=== PATIENT | female | born 1980 | race Caucasian/White ===

== ENCOUNTER 2022-06-09 06:55 | Day surgery (SDC) | payer OTHER, SELFPAY ==
[2022-06-09] VITALS (7 sets, daily range): BP systolic 107–127; BP diastolic 71–84; PULSE 81–110; RESP 16; TEMP 36.1–36.8; O2SAT 97–100; BMI 28.3
--- NOTE | 2022-06-09 | COLBX_PTH ---
PATIENT: YANN KANG LOC: EN U#:[id number] AGE/SX: 42/F ROOM: RE06/09/[address]: Dr. Raegan Silva MD : 1980 BED: DIS: 06/09/2022 SPEC #: [id number] RECD: 06/09/22 14:38 STATUS: NIKOLAY RETameka #: [id number] DEMETRIO: 06/09/22 00:[address]: Raegan Silva DEPT: SURGICAL PATHOLOGY RECD BY: Crescencio Rubio ENTERED: 06/10/22 09:08 SP TYPE: COLON BX OTHR DR: Dr. Maikol Bear, DO Tissues: A - Sigmoid colon biopsy B - Rectum, NOS C - Rectum, NOS D - Rectum, NOS Procedures: Surgery Specimen Level IV HEADER OPERATION: Colonoscopy (MAC) PRE-OP DIAGNOSIS: Rectal/anal verge mass 2-3 o?clock TISSUE SUBMITTED: A ? Sigmoid polyp biopsy, B ? Rectal polyp base #1, C - Rectal polyp base #2, D - Rectal polyp top MICROSCOPIC DIAGNOSIS A. Sigmoid polyp, biopsy: Fragments of hyperplastic polyp. B. 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 See cancer summary in the comment section. C. Rectal polyp base #2, biopsy: Fragments of colonic mucosa with focal hyperplastic changes. Negative for adenomatous changes. D. 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 See comment. SJ:aleksey 06/11/2022 COMMENT COLON CANCER SUMMARY, POLYPECTOMY, EXCISIONAL BIOPSY (including specimens B-D): Specimen integrity ? fragmented Tumor site ? 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 grade 1, well differentiated Size of invasive carcinoma ? 0.2 cm Tumor extent ? tumor invades muscularis mucosa. Lymphvascular invasion ? not identified Tumor deposits ? not applicable Type of polyp in which intramucosal carcinoma arose ? tubulovillous adenoma Polyp size ? fragmented, greatest polyp fragment size - 2 cm. Margins ? margins are free of adenomatous changes (specimen C - rectal polyp base, the largest piece measures 0.5 cm in thickness). Additional findings ? none The above summary is in compliance with [employer] [place] [employer] (CAP) Cancer Protocols Checklist and [place] [employer] Committee on Cancer (AJCC), Staging Manual, 8th Ed. Correlation with clinical, endoscopic findings and appropriate follow up are necessary. This case was reviewed and diagnosis discussed with Dr. Silva on 06/13/2022. Case has been reviewed in consultation with Dr. Jarvis who concurs with the above diagnosis. IDC:AM MICROSCOPIC DESCRIPTION Slides are reviewed. GROSS DESCRIPTION A - Received in fixative is one container labeled with the patient's name and designated sigmoid polyp biopsy. The specimen consists of multiple irregular fragments of light sky soft tissue that in aggregate measure 1 x 1 x 0.1 cm. The specimen is totally submitted in one cassette. B - Received in fixative is one container labeled with the patient's name and designated rectal polyp base #1. The specimen consists of a pink-red polyp measuring 2.5 x 2 x 1.2 cm. The presumed base is inked. The polyp is serially sectioned and submitted entirely in two cassettes. C - Received in fixative is one container labeled with the patient's name and designated rectal polyp base #2. The specimen consists of multiple irregular fragments of sky-pink polypoid tissue that in aggregate measure 2 x 2 x 0.7 cm. The largest two pieces measure 0.8 and 1.5 cm in greatest dimension. The largest piece is serially sectioned. The second largest piece is bisected. The entire specimen is submitted in two cassettes. D - Received in fixative is one container labeled with the patient's name and designated rectal polyp top. The specimen consists of multiple irregular fragments of sky-pink polypoid tissue that in aggregate measure 1.5 x 1.5 x 0.4 cm. The entire specimen is submitted in one cassette. / SJ:rg 06/10/2022 TC:0 [facility]: [id number] x4
--- NOTE | 2022-06-09 07:16 | HP.PCM_ITS ---
History and Physical Date of Admission: 06/09/22 Date of Service:? 06/02/22 MR#: [id number] Acct: [id number] Name:YANN PEREZ Rep #: [id number] : 1980 ? ? Provider: Dr. Raegan Silva MD Age/Sex:? 42/F ? ? Location: [facility] Status: Signed Intake Vital Signs ? 06/02/2308:01 Height 5 ft 6 in Weight: 176 lb BMI 28.4 BP 117/75 Blood Pressure Location Rt brachial Position Sitting Respiration 16 Intake Visit Reasons:?HEMORRHAGE OF ANUS AND RECTUM Chief Complaint: est care Allergies No Known Allergies Allergy (Unverified 05/29/22 14:54) PFSH Medical History History of fracture History of IBS Kidney stones Non-smoker Surgical History? History of Family History? Grandfather Parkinsons disease Social History? Smoking Status:? Never smoker alcohol intake:? never substance use type:? does not use what type of physical activity do you participate in:? walking and weight training frequency:? 3-4 times per week HPI HPI HPI: 2-year-old female presents due to bright red blood per rectum.? Patient states for about the last 6 months she is noted some bright red blood in the stool and also dripping in the toilet usually smaller amount overall.? Patient states that happens with every bowel movement.? Patient does have 1-2 bowel movements daily.? Patient states she occasionally gets abdominal pain/cramping with this/bowel movements.? Patient states prior to about 6 months ago she may have had this bright red blood per rectum maybe once a week.? Patient denies any straining does states she does may spend prolonged times on the toilet she thinks she needs to go but is not going.? Patient is unsure amount of fiber she gets daily likely on the low side.? Patient is not sure she also drinks enough water daily.? Patient's never had previous colonoscopy.? Patient states that her maternal grandmother did have colitis but inflammatory bowel disease/Crohn's or ulcerative colitis does not sound familiar. ROS General General: No weight change, appetite, fatigue, colon cancer, breast cancer or weakness HEENT HEENT: No difficulty swallowing, eye injury, eye surgery, swollen glands or ho arseness Endo Endocrine: No thyroid disease, diabetes mellitus, thyroid cancer, Hair loss, heat intolerance or cold intolerance Skin Skin: No rash or changing moles Breast Breast: No left breast lump, right breast lump, nipple discharge, breast pain, abnormal mammogram, abnormal US or breast enlargement Musc Musculoskeletal: No back problems, arthritis, rheumatoid arthritis, gout or joint pain Cardio Cardiovascular: No murmur, pacemaker, heart disease, atrial fibrillation, high blood pressure, heart attack, heart stent, palpitations, shortness of breat with exertion or chest pain Psych Psychiatric: No depression, anxiety or hearing voices Resp Respiratory: No shortness of breath, No sleep apnea, No cough, No COPD, No asthma, No emphysema and No wheezing Gastro Gastrointestinal: Yes abdominal pain, Yes nausea or vomiting, No diarrhea, No constipation, Yes blood in stool, No acid reflux, No hemorrhoids, No ulcers, No gallbladder problem and No black,tarry stools Ernesto Hematologic: No blood thinners, No blood disorders, No bleeding, No anemia and No blood clots Neuro Neurologic: No system reviewed and no additional complaints, except as documented, No as per HPI, No abnormal gait, No abnormal hearing, No abnormal movements, No abnormal speech, No behavioral changes, No burning sensations, No confusion, No convulsions, No disequilibrium, No dizziness, No localized weakness, No frequent falls, No headache(s), No lack of coordination, No loss of vision, No memory loss, No numbness, No other visual disturbances, No radicular pain, No restless legs, No sensory deficit, No syncope, No tingling, No tremor(s), No weakness and No other Exam Const General: cooperative, healthy appearing and no acute distress [facility] Head: normal to inspection Resp Effort & Inspection: normal respiratory effort Cardio Rate: regular rate GI Inspection: non-distended Palpation: soft, no guarding, no hernias and nontender Other: NICOLA: No external residual tissue or hemorrhoids, internal hemorrhoid at about 4:00 small in size, no other masses or gross blood on exam. Skin General: no rashes or lesions noted Neuro General: patient oriented x3 Extrem General: no clubbing, cyanosis or edema Psych Affect: normal affect Assessment and Plan Assessment and Plan (1) Rectal bleeding: ?Status:?Acute Plan I have discussed the above with the patient. I have offered the patient colonoscopy for evaluation. I have explained the risks/benefits of the procedure and described the procedure.? I have discussed the risks with the patient, including but not limited to:? infection, bleeding, perforation of the GI tract requiring karmen rgency surgery, inability to complete the procedure, injury to any internal organs, complications of anesthesia, etc. - the patient understands and agrees to proceed. I have answered all the patient's questions to the patient's satisfaction and the patient has no further questions. The patient has been given instructions for the colon cleansing preparation. one day of clears- miralax/dulcolax. Raegan Silva M.D. Pager: [phone] [facility] [address] [place] [address], [address] [place] [address] Office: [phone] Coding Level of Care Code Off vis,new,level 3 Diagnoses Rectal bleeding? K62.5 06/06/22 1248 <Electronically signed by Raegan Silva MD> Date Raegan Silva MD
[2022-06-09] MEDS: Lactated Ringers 1,000 ML 15 ML IV (07:28)
[2022-06-09 07:41] LABS: Internal QC Validated? YES +Cl - CLEAR BKGD; Pregnancy, Serum, hCG Quali. NEGATIVE Negative
[2022-06-09] MEDS: Dibucaine 30 GM Tube 1 APPLIC (09:52)
--- NOTE | 2022-06-09 10:08 | OP.COLON_ITS ---
Patient Name: Rochelle Shaffer Procedure Date: 06/09/2022 8:13 AM Date of : 1980 Age: 42 Procedure: Colonoscopy Indications: Rectal bleeding Providers: Raegan Silva MD Referring MD: Raegan Silva MD Medicines: Monitored Anesthesia Care Patient Profile: This is a 42 year old female. Last Colonoscopy: none. The patient's first colonoscopy is today. Complications: No immediate complications. Procedure: Pre-Anesthesia Assessment: - Prior to the procedure, a History and Physical was performed, and patient medications and allergies were reviewed. The patient's tolerance of previous anesthesia was also reviewed. The risks and benefits of the procedure and the sedation options and risks were discussed with the patient. All questions were answered, and informed consent was obtained. Prior Anticoagulants: The patient has taken no previous anticoagulant or antiplatelet agents. ASA Grade Assessment: Per anesthesia. After reviewing the risks and benefits, the patient was deemed in satisfactory condition to undergo the procedure. After I obtained informed consent, the scope was passed under direct vision. Throughout the procedure, the patient's blood pressure, pulse, and oxygen saturations were monitored continuously. The adult colonoscope was introduced through the anus and advanced to the terminal ileum. The colonoscopy was technically difficult and complex due to large broadbased polyp at distal rectum/anal verge. [Solution]. The quality of the bowel preparation was good. Scope In: 8:26:21 AM Scope Withdrawal Time 0 hours 59 minutes 9 seconds Scope Out: 9:52:43 AM Total Procedure Duration Time 1 hour 26 minutes 22 seconds Findings: The perianal examination was normal. Two sessile polyps were found in the sigmoid colon. The polyps were 2 to 4 mm in size. These polyps were removed with a cold biopsy forceps. Resection and retrieval were complete. A 35 mm polyp was found in the rectum. The polyp was carpet-like and semi-pedunculated. The polyp was removed with a piecemeal technique using a hot snare. Resection and retrieval were complete. Due to bleeding 2-0 vicryl figure of 8 suture was placed-bleeding controlled and gelform also placed in rectum at the end of the case. The terminal ileum appeared normal. The exam was otherwise without abnormality. Impression: - Two 2 to 4 mm polyps in the sigmoid colon, removed with a cold biopsy forceps. Resected and retrieved. - One 35 mm polyp in the rectum, removed piecemeal using a hot snare. Resected and retrieved. - The examined portion of the ileum was normal. - The examination was otherwise normal. Recommendation: - Discharge patient to home. - Resume previous diet. - Continue present medications. - Take Sitz baths Daily. - Repeat colonoscopy 3-6 month for surveillance based on pathology results. Procedure Code(s): --- Professional --- 29273, Colonoscopy, flexible; with removal of tumor(s), polyp(s), or other lesion(s) by snare technique 00560, 59, Colonoscopy, flexible; with biopsy, single or multiple Diagnosis Code(s): --- Professional --- D12.5, Benign neoplasm of sigmoid colon K62.1, Rectal polyp K62.5, Hemorrhage of anus and rectum CPT copyright 2017 [employer]. All rights reserved. The codes documented in this report are preliminary and upon molded grid and parts inspector review may be revised to meet current compliance requirements. MD Raegan Fournier MD 06/09/2022 10:08:22 AM This report has been signed electronically. Number of Addenda: 0 Note Initiated On: 06/09/2022 8:13 AM
--- NOTE | 2022-06-09 10:09 | OP.CCLET_ITS ---
06/09/2022 Maikol Bear Re : Colonoscopy procedure for Rochelle Shaffer Dear Dr. Bear This procedure was performed on Thursday, June 09, 2022. My impressions and recommendations are as follows: Impressions : - Two 2 to 4 mm polyps in the sigmoid colon, removed with a cold biopsy forceps. Resected and retrieved. - One 35 mm polyp in the rectum, removed piecemeal using a hot snare. Resected and retrieved. - The examined portion of the ileum was normal. - The examination was otherwise normal. Recommendations : - Discharge patient to home. - Resume previous diet. - Continue present medications. - Take Sitz baths Daily. - Repeat colonoscopy 3-6 month for surveillance based on pathology results. My findings are described in the full procedure note, which is enclosed. If I can be of further assistance, please feel free to contact me at Doctor phone number(s): , Work: . Sincerely, MD Raegan Fournier MD 06/09/2022 10:08:22 AM This report has been signed electronically.
== END 2022-06-09 11:26 | disposition home or self-care (01) ==
LOC: EN 06:59 → AC 07:00
PROVIDERS: Anesthesiology; PCP Family Medicine; Referring Provider Surgery; Visit Provider Surgery
PROC: 0DJD8ZZ Inspection of Lower Intestinal Tract, Via Natural or Artificial Opening Endoscopic (ICD-10-PCS; CPT 45378; principal; 2022-06-09 08:10)
DX: C20 Malignant neoplasm of rectum (principal); K63.5 Polyp of colon
CPT/HCPCS: 45385; 45380; 84703; 88305; J7120; J2405